=== PATIENT | female | born 1995 | race Hispanic/Latino ===

== ENCOUNTER 2018-10-24 17:58 | Emergency (ER) | payer OTHER ==
[2018-10-24] MEDS ORDERED: TETANUS & DIPHTHERIA TOX,ADULT 0.5 ML VIAL ONE (18:22)
[2018-10-24] MEDS ORDERED: KETOROLAC 30 MG/ML INJ ONE (18:22)
[2018-10-24] MEDS ORDERED: NA CHLORIDE 0.9% 1,000 ML ONE (18:22)
[2018-10-24] MEDS ORDERED: ONDANSETRON 4 MG/2 ML VIAL ONE (18:36)
[2018-10-24 19:21] LABS: Urine Blood 2+ (NEG); Urine Glucose NEGATIVE (NEG); Urine Protein NEGATIVE (NEG); Urine Specific Gravity 1.005 (1.005-1.030)
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
--- NOTE | 2018-10-24 19:58 | RAD REPORT ---
EXAM DESCRIPTION: RAD - Ankle Right 3 View - 10/24/2018 7:37 pm CLINICAL HISTORY: Right ankle pain FINDINGS: No fracture or dislocation is seen.
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
[2018-10-24] MEDS ORDERED: LIDOCAINE 1% MPF 30 ML VIAL ONE (20:14)
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
== END 2018-10-24 22:01 | disposition home or self-care (01) ==
LOC: ER 17:58
PROC: 0JQQ0ZZ Repair Right Foot Subcutaneous Tissue and Fascia, Open Approach (ICD-10-PCS; principal; 2018-10-24)
PROC: 0JQN0ZZ Repair Right Lower Leg Subcutaneous Tissue and Fascia, Open Approach (ICD-10-PCS; 2018-10-24)
DX: S81.021A Laceration with foreign body, right knee, initial encounter (principal); S91.114A Laceration without foreign body of right lesser toe(s) without damage to nail, initial encounter; S30.811A Abrasion of abdominal wall, initial encounter; S70.11XA Contusion of right thigh, initial encounter; S30.1XXA Contusion of abdominal wall, initial encounter; V49.50XA Passenger injured in collision with unspecified motor vehicles in traffic accident, initial encounter
CPT/HCPCS: 96361; 36415; 84703; 81003; 70450; 72125; 71260; 74177; 73552; 73610; 96374; 99284; 12004; Q9967; J7030; 90714; J2405

== ENCOUNTER 2022-12-18 20:09 | Emergency (ER) | payer OTHER, SELFPAY ==
--- OUTSIDE RECORDS SUMMARY | 2022-12-18 20:14 | XMS REPORT | Continuity of Care Document ---
:1995 Author Organization [facility] t Address [address] [place] [address] Care Team Providers Name Role Phone Terri Parish Primary Care Physician GILDA HOFFMANN Attending Clinician Unavailable Lab, Vick Attending Clinician Unavailable Maryana Bullock MD Attending Clinician MARYANA BULLOCK Attending Clinician Unavailable MARYANA BULLOCK Attending Clinician Unavailable 1, [facility] Room Attending Clinician Unavailable Gilda Pugh Attending Clinician [phone] LAST ALMARAZ Attending Clinician Unavailable 2, [facility] Room Attending Clinician Unavailable Last Almaraz MD Attending Clinician [phone] Lab, Rajat-Yasir Attending Clinician Unavailable Doctor Unassigned, [place] Attending Clinician Unavailable BEATRIS CASTREJON Attending Clinician Unavailable [id number] Attending Clinician Unavailable Quentin Galindo DO Attending Clinician Payers Payer Name Policy Type Policy Number Effective Date Expiration Date S ource MEDICAID OF [place] [id number] 2022 00:00:00 BCBS 2 [id number] 2022 00:00:00 Problems Condition Condition Condition Status Onset Resolution Last Treating Co mments Source Name Details Category Date Date Treatment Clinician Date Rh Rh Disease Active Overview: Univer s negative negative 11-09 [place] ity of state in state in 00:00: g of this Ciaran as antepartum antepartum 00 note Me dical period period might be Branch different from the original. Rhogam at 28 weeks Supervisio Supervisio Disease Active U nivers n of n of 8 ity of high-risk [place] 00:[place] [facility] Obesity in Obesity in Disease Active U nivers 8- ity of 00:00: [place] [address] Medical Branch Other Other Disease Active Univers general general 8- it[place] of counseling [place] and advice 00 Me dical for for Branch contracept contracept everardo everardo management management Obesity Obesity Disease Active Univers (BMI (BMI 8-21 ity of 30-39.9) 30-39.9) 00:00: [address] Breast Breast Disease Active Univers discharge discharge 2-12 ity of 00:00: [place] [address] Medical Branch Missed Missed Disease Active Univers menses menses 6- ity of 00:00: [place] [facility] Need for Need for Disease Active Unive rs HPV HPV 6-07 ity of vaccin[place] [facility] Allergies, Adverse Reactions, Alerts Allergy Allergy Status Severity Reaction(s) Onset Inactive Treating Comm ents Source Name Type Date Date Clinician NO KNOWN Drug Active Univers ALLERGIE Class ity of S [facility] Social History Social Habit Start Date Stop Date Quantity Comments Source ASSERTION 2022-10-03 University of 00:00:00 [facility] Gender identity Universit y of [facility] Sexual orientation Univer sity [facility] History of Social 2022-11-07 2022-11-07 Univers ity of function 00:00:00 00:00:00 [facility] Alcohol intake 2022-07-19 2022-07-19 Ex-drinker Yue alicia - 00:00:00 00:00:00 (finding) External Alcohol Comment 2022-07-18 2022-07-18 socially Yue Cordero ybold - 00:00:00 00:00:00 External Exposure to 2019-10-14 2019-11-13 [facility] 00:00:00 15:34:00 [facility] Tobacco use and 2016-08-15 2016-08-15 Smokeless Universit y of exposure 00:00:00 00:00:00 tobacco non-user [facility] Sex Assigned At [birth year] Yue Se ybold - 00:00:00 00:00:00 External Smoking Status Start Date Stop Date Source Never smoked tobacco [facility] Medications Ordered Filled Start Stop Current Ordering Indication Dosage Frequency Signature Comments Components Source Medication Medication Date Date Medication? Clinician (SIG) Name Name PNV 67-iron 2022-0 Yes [id number] 1{each} Take 1 Univers ps-folate 9-06 Each by ity of no.1-dha 00:00: mouth in [place] (VITAFOL the Medical ULTRA) 29 morning. Branch mg iron- 1 mg-200 mg Cap PNV 67-iron 2022-0 Yes [id number] 1{each} Take 1 Univers ps-folate 9-06 Each by ity of no.1-dha 00:00: mouth in [place] (VITAFOL the Medical ULTRA) 29 morning. Branch mg iron- 1 mg-200 mg Cap PNV 67-iron 2022-0 Yes [id number] 1{each} Take 1 Univers ps-folate 9-06 Each by ity of no.1-dha 00:00: mouth in [place] (VITAFOL the Medical ULTRA) 29 morning. Branch mg iron- 1 mg-200 mg Cap PNV 67-iron 2022-0 Yes [id number] 1{each} Take 1 Univers ps-folate 9-06 Each by ity of no.1-dha 00:00: mouth in [place] (VITAFOL 00 the Medical ULTRA) 29 morning. Branch mg iron- 1 mg-200 mg Cap PNV 67-iron 2022-0 Yes [id number] 1{each} Take 1 Univers ps-folate 9-06 Each by ity of no.1-dha 00:00: mouth in [place] (VITAFOL 00 the Medical ULTRA) 29 morning. Branch mg iron- 1 mg-200 mg Cap PNV 67-iron 3-0 Yes [id number] 1{each} Take 1 Univers ps-folate 9-06 Each by ity of no.1-dha 00:00: mouth in [place] (VITAFOL 00 the Medical ULTRA) 29 morning. Branch mg iron- 1 mg-200 mg Cap PNV 67-iron 3-0 Yes [id number] 1{each} Take 1 Univers ps-folate 9-06 Each by ity of no.1-dha 00:00: mouth in [place] (VITAFOL 00 the Medical ULTRA) 29 morning. Branch mg iron- 1 mg-200 mg Cap proMETHazin 2023-0 Yes [id number] 25mg Take 1 Univers e 25 mg 8-29 tablet by ity of tablet 00:00: mouth [place] 00 every 6 Medical (six) Branch hours as needed for Nausea and Vomiting (N/V). proMETHazin 3-0 Yes [id number] 25mg Take 1 Univers e 25 mg 8-29 tablet by ity of tablet 00:00: mouth [place] 00 every 6 Medical (six) Branch hours as needed for Nausea and Vomiting (N/V). proMETHazin 3-0 Yes [id number] 25mg Take 1 Univers e 25 mg 8-29 tablet by ity of tablet 00:00: mouth [place] 00 every 6 Medical (six) Branch hours as needed for Nausea and Vomiting (N/V). proMETHazin 2023-0 Yes [id number] 25mg Take 1 Univers e 25 mg 8-29 tablet by ity of tablet 00:00: mouth [place] 00 every 6 Medical (six) Branch hours as needed for Nausea and Vomiting (N/V). proMETHazin 2023-0 Yes [id number] 25mg Take 1 Univers e 25 mg 8-29 tablet by ity of tablet 00:00: mouth [place] 00 every 6 Medical (six) Branch hours as needed for Nausea and Vomiting (N/V). proMETHazin 2023-0 Yes [id number] 25mg Take 1 Univers e 25 mg 8-29 tablet by ity of tablet 00:00: mouth [place] 00 every 6 Medical (six) Branch hours as needed for Nausea and Vomiting (N/V). proMETHazin 2023-0 Yes [id number] 25mg Take 1 Univers e 25 mg 8-29 tablet by ity of tablet 00:00: mouth [place] 00 every 6 Medical (six) Branch hours as needed for Nausea and Vomiting (N/V). proMETHazin 3-0 Yes [id number] 25mg Take 1 Univers e 25 mg 8-29 tablet by ity of tablet 00:00: mouth [place] 00 every 6 Medical (six) Branch hours as needed for Nausea and Vomiting (N/V). proMETHazin 3-0 Yes [id number] 25mg Take 1 Univers e 25 mg 8-29 tablet by ity of tablet 00:00: mouth [place] 00 every 6 Medical (six) Branch hours as needed for Nausea and Vomiting (N/V). proMETHazin 3-0 Yes [id number] 25mg Take 1 Univers e 25 mg 8-29 tablet by ity of tablet 00:00: mouth [place] 00 every 6 Medical (six) Branch hours as needed for Nausea and Vomiting (N/V). proMETHazin 3-0 Yes [id number] 25mg Take 1 Univers e 25 mg 8-29 tablet by ity of tablet 00:00: mouth [place] 00 every 6 Medical (six) Branch hours as needed for Nausea and Vomiting (N/V). proMETHazin 3-0 Yes [id number] 25mg Take 1 Univers e 25 mg 8-29 tablet by ity of tablet 00:00: mouth [place] 00 every 6 Medical (six) Branch hours as needed for Nausea and Vomiting (N/V). proMETHazin 3-0 Yes [id number] 25mg Take 1 Univers e 25 mg 8-29 tablet by ity of tablet 00:00: mouth [place] 00 every 6 Medical (six) Branch hours as needed for Nausea and Vomiting (N/V). medroxyPROG 2020- No [id number] 150mg Univers ESTERone 11-12 ity of (DEPO-PROVE 21:15: 21:14 [place] ) 00 :00 Medical injection Branch 150 mg medroxyPROG 2019-2020- No [id number] 150mg 150 mg, Univers ESTERone 11-12 Intramuscu ity of (DEPO-PROVE 21:15: 21:14 lar, [facility]) 00 :00 [id number], Medical injection 4 doses, Branch 150 mg First dose on Nava 11/13/19 at 1615, Last dose on Nava 07/22/20 at 1615, Routine medroxyPROG 2020-0 2020- No [id number] 150mg Univers ESTERone 11-12 ity of (DEPO-PROVE 21:15: 21:14 [place] RA) 00 :00 Medical injection Branch 150 mg medroxyPROG 2020-0 2020- No [id number] 150mg Univers ESTERone 11-12 ity of (DEPO-PROVE 21:15: 21:14 [place] RA) 00 :00 Medical injection Branch 150 mg medroxyPROG 2020-0 2020- No [id number] 150mg 150 mg, Univers ESTERone 11-12 Intramuscu ity of (DEPO-PROVE 21:15: 21:14 lar, [place] RA) 00 :00 [id number], Medical injection 4 doses, Branch 150 mg First dose on Nava 11/13/19 at 1615, Last dose on Nava 07/22/20 at 1615, Routine No known No Univers medications ity [facility] No known No Univers medications ity [facility] No known No Univers medications ity [facility] Immunizations Ordered Immunization Filled Date Status Comments Sour ce Name Immunization Name HPV 9 (Human 2016-08-15 Completed Yue roberts Papillomavirus) 00:00:00 - Externa yvette HPV9 2016-08-15 Completed University of 00:00:00 [facility] HPV9 2016-08-15 Completed University of 00:00:00 [facility] HPV9 2016-08-15 Completed University of 00:00:00 [facility] HPV9 2016-08-15 Completed University of 00:00:00 [facility] HPV9 2016-08-15 Completed University of 00:00:00 [facility] HPV9 2016-08-15 Completed University of 00:00:00 [facility] HPV9 2016-08-15 Completed University of 00:00:00 [facility] HPV9 2016-08-15 Completed University of 00:00:00 [facility] HPV9 2016-08-15 Completed University of 00:00:00 [facility] HPV9 2016-08-15 Completed University of 00:00:00 [facility] HPV9 2016-08-15 Completed University of 00:00:00 [facility] HPV9 2016-08-15 Completed University of 00:00:00 [facility] HPV9 2016-08-15 Completed University of 00:00:00 [facility] HPV9 2016-08-15 Completed University of 00:00:00 [facility] HPV9 2016-08-15 Completed University of 00:00:00 [facility] HPV9 2016-08-15 Completed University of 00:00:00 [facility] HEPATITIS A- 2012-08-09 Completed Yeu roberts PEDI/ADOL 00:00:00 - External HPV 4 (Human 2012-08-09 Completed Yue roberts Papillomavirus) 00:00:00 - Externa l Meningococcal 2012-08-09 Completed Yue Byrd old Vaccine- 00:00:00 - External Conjugate(Menveo) HPV 2012-08-09 Completed University of 00:00:00 [facility] HPV 2012-08-09 Completed University of 00:00:00 [facility] HEPATITIS A 2012-08-09 Completed University of 00:00:00 [facility] HEPATITIS A 2012-08-09 Completed University of 00:00:00 [facility] Meningococcal 2012-08-09 Completed University of Oligosaccharide 00:00:00 [place] [facility] ical (groups A, C, Y and Branc h W-135) conjugate vaccine (MCV4O) Meningococcal 2012-08-09 Completed University of Oligosaccharide 00:00:00 [place] [facility] ical (groups A, C, Y and Branc h W-135) conjugate vaccine (MCV4O) HPV 2012-08-09 Completed University of 00:00:00 [facility] HEPATITIS A 2012-08-09 Completed University of 00:00:00 [facility] Meningococcal 2012-08-09 Completed University of Oligosaccharide 00:00:00 [place] [facility] ical (groups A, C, Y and Branc h W-135) conjugate vaccine (MCV4O) HPV 2012-08-09 Completed University of 00:00:00 [facility] HEPATITIS A 2012-08-09 Completed University of 00:00:00 [facility] Meningococcal 2012-08-09 Completed University of Oligosaccharide 00:00:00 [place] [facility] ical (groups A, C, Y and Branc h W-135) conjugate vaccine (MCV4O) HPV 2012-08-09 Completed University of 00:00:00 [facility] HEPATITIS A 2012-08-09 Completed University of 00:00:00 [facility] Meningococcal 2012-08-09 Completed University of Oligosaccharide 00:00:00 [place] Med ical (groups A, C, Y and Branc h W-135) conjugate vaccine (MCV4O) HPV 2012-08-09 Completed University of 00:00:00 [facility] HEPATITIS A 2012-08-09 Completed University of 00:00:00 [facility] Meningococcal 2012-08-09 Completed University of Oligosaccharide 00:00:00 [place] Med ical (groups A, C, Y and Branc h W-135) conjugate vaccine (MCV4O) HPV 2012-08-09 Completed University of 00:00:00 [facility] HEPATITIS A 2012-08-09 Completed University of 00:00:00 [facility] Meningococcal 2012-08-09 Completed University of Oligosaccharide 00:00:00 [place] Med ical (groups A, C, Y and Branc h W-135) conjugate vaccine (MCV4O) HPV 2012-08-09 Completed University of 00:00:00 [facility] HEPATITIS A 2012-08-09 Completed University of 00:00:00 [facility] Meningococcal 2012-08-09 Completed University of Oligosaccharide 00:00:00 [place] Med ical (groups A, C, Y and Branc h W-135) conjugate vaccine (MCV4O) HPV 2012-08-09 Completed University of 00:00:00 [facility] HEPATITIS A 2012-08-09 Completed University of 00:00:00 [facility] Meningococcal 2012-08-09 Completed University of Oligosaccharide 00:00:00 [place] Med ical (groups A, C, Y and Branc h W-135) conjugate vaccine (MCV4O) HPV 2012-08-09 Completed University of 00:00:00 [facility] HEPATITIS A 2012-08-09 Completed University of 00:00:00 [facility] Meningococcal 2012-08-09 Completed University of Oligosaccharide 00:00:00 [place] Med ical (groups A, C, Y and Branc h W-135) conjugate vaccine (MCV4O) HPV 2012-08-09 Completed University of 00:00:00 [facility] HPV 2012-08-09 Completed University of 00:00:00 [facility] HEPATITIS A 2012-08-09 Completed University of 00:00:00 [facility] Meningococcal 2012-08-09 Completed University of Oligosaccharide 00:00:00 [place] Med ical (groups A, C, Y and Branc h W-135) conjugate vaccine (MCV4O) HEPATITIS A 2012-08-09 Completed University of 00:00:00 [facility] Meningococcal 2012-08-09 Completed University of Oligosaccharide 00:00:00 [place] Med ical (groups A, C, Y and Branc h W-135) conjugate vaccine (MCV4O) HPV 2012-08-09 Completed University of 00:00:00 [facility] HEPATITIS A 2012-08-09 Completed University of 00:00:00 [facility] Meningococcal 2012-08-09 Completed University of Oligosaccharide 00:00:00 [place] Med ical (groups A, C, Y and Branc h W-135) conjugate vaccine (MCV4O) HPV 2012-08-09 Completed University of 00:00:00 [facility] HEPATITIS A 2012-08-09 Completed University of 00:00:00 [facility] Meningococcal 2012-08-09 Completed University of Oligosaccharide 00:00:00 [place] Med ical (groups A, C, Y and Branc h W-135) conjugate vaccine (MCV4O) HPV 2012-08-09 Completed University of 00:00:00 [facility] HEPATITIS A 2012-08-09 Completed University of 00:00:00 [facility] Meningococcal 2012-08-09 Completed University of Oligosaccharide 00:00:00 [place] Med ical (groups A, C, Y and Branc h W-135) conjugate vaccine (MCV4O) HPV 2012-08-09 Completed University of 00:00:00 [facility] HEPATITIS A 2012-08-09 Completed University of 00:00:00 [facility] Meningococcal 2012-08-09 Completed University of Oligosaccharide 00:00:00 [place] Med ical (groups A, C, Y and Branc h W-135) conjugate vaccine (MCV4O) Influenza Virus 2007-11-26 Completed Yue joel Vaccine, Unspecified 00:00:00 - Ex ternal Formulation Tdap- (Boostrix, 2007-11-26 Completed Yue porter Adacel) 00:00:00 - External Influenza Virus 2007-11-26 Completed Universit y of Vaccine 00:00:00 [facility] TDAP 2007-11-26 Completed University of 00:00:00 [facility] Influenza Virus 2007-11-26 Completed Universit y of Vaccine 00:00:00 [facility] TDAP 2007-11-26 Completed University of 00:00:00 [facility] Influenza Virus 2007-11-26 Completed Universit y of Vaccine 00:00:00 [facility] TDAP 2007-11-26 Completed University of 00:00:00 [facility] Influenza Virus 2007-11-26 Completed Universit y of Vaccine 00:00:00 [facility] TDAP 2007-11-26 Completed University of 00:00:00 [facility] Influenza Virus 2007-11-26 Completed Universit y of Vaccine 00:00:00 [facility] Influenza Virus 2007-11-26 Completed Universit y of Vaccine 00:00:00 [facility] TDAP 2007-11-26 Completed University of 00:00:00 [facility] Influenza Virus 2007-11-26 Completed Universit y of Vaccine 00:00:00 [facility] TDAP 2007-11-26 Completed University of 00:00:00 [facility] TDAP 2007-11-26 Completed University of 00:00:00 [facility] Influenza Virus 2007-11-26 Completed Universit y of Vaccine 00:00:00 [facility] TDAP 2007-11-26 Completed University of 00:00:00 [facility] Influenza Virus 2007-11-26 Completed Universit y of Vaccine 00:00:00 [facility] TDAP 2007-11-26 Completed University of 00:00:00 [facility] Influenza Virus 2007-11-26 Completed Universit y of Vaccine 00:00:00 [facility] TDAP 2007-11-26 Completed University of 00:00:00 [facility] Influenza Virus 2007-11-26 Completed Universit y of Vaccine 00:00:00 [facility] TDAP 2007-11-26 Completed University of 00:00:00 [facility] Influenza Virus 2007-11-26 Completed Universit y of Vaccine 00:00:00 [facility] TDAP 2007-11-26 Completed University of 00:00:00 [facility] Influenza Virus 2007-11-26 Completed Universit y of Vaccine 00:00:00 [facility] TDAP 2007-11-26 Completed University of 00:00:00 [facility] Influenza Virus 2007-11-26 Completed Universit y of Vaccine 00:00:00 [facility] TDAP 2007-11-26 Completed University of 00:00:00 [facility] Influenza Virus 2007-11-26 Completed Universit y of Vaccine 00:00:00 [facility] TDAP 2007-11-26 Completed University of 00:00:00 [facility] Influenza Virus 2007-11-26 Completed Universit y of Vaccine 00:00:00 [facility] TDAP 2007-11-26 Completed University of 00:00:00 [facility] HEPATITIS A- 2006-08-13 Completed Yue roberts PEDI/ADOL 00:00:00 - External HPV 4 (Human 2006-08-13 Completed Yue roberts Papillomavirus) 00:00:00 - Externa l HEPATITIS A 2006-08-13 Completed University of 00:00:00 [place] [facility] HPV 2006-08-13 Completed University of 00:00:00 [place] [facility] HEPATITIS A 2006-08-13 Completed University of 00:00:00 [place] [facility] HPV 2006-08-13 Completed University of 00:00:00 [place] [facility] HEPATITIS A 2006-08-13 Completed University of 00:00:00 [place] [facility] HPV 2006-08-13 Completed University of 00:00:00 [place] [facility] HEPATITIS A 2006-08-13 Completed University of 00:00:00 [place] [facility] HEPATITIS A 2006-08-13 Completed University of 00:00:00 [place] [facility] HPV 2006-08-13 Completed University of 00:00:00 [place] [facility] HPV 2006-08-13 Completed University of 00:00:00 [place] [facility] HEPATITIS A 2006-08-13 Completed University of 00:00:00 [place] [facility] HPV 2006-08-13 Completed University of 00:00:00 [place] [facility] HEPATITIS A 2006-08-13 Completed University of 00:00:00 [place] [facility] HPV 2006-08-13 Completed University of 00:00:00 [place] [facility] HEPATITIS A 2006-08-13 Completed University of 00:00:00 [place] [facility] HPV 2006-08-13 Completed University of 00:00:00 [place] [facility] HEPATITIS A 2006-08-13 Completed University of 00:00:00 [place] [facility] HPV 2006-08-13 Completed University of 00:00:00 [place] [facility] HEPATITIS A 2006-08-13 Completed University of 00:00:00 [place] [facility] HPV 2006-08-13 Completed University of 00:00:00 [place] [facility] HEPATITIS A 2006-08-13 Completed University of 00:00:00 [place] [facility] HPV 2006-08-13 Completed University of 00:00:00 [place] [facility] HEPATITIS A 2006-08-13 Completed University of 00:00:00 [place] [facility] HPV 2006-08-13 Completed University of 00:00:00 [place] [facility] HEPATITIS A 2006-08-13 Completed University of 00:00:00 [place] [facility] HPV 2006-08-13 Completed University of 00:00:00 [place] [facility] HEPATITIS A 2006-08-13 Completed University of 00:00:00 [place] [facility] HPV 2006-08-13 Completed University of 00:00:00 [place] [facility] HEPATITIS A 2006-08-13 Completed University of 00:00:00 [place] [facility] HPV 2006-08-13 Completed University of 00:00:00 [facility] HEPATITIS A 2006-08-13 Completed University of 00:00:00 [place] [facility] HPV 2006-08-13 Completed University of 00:00:00 [facility] DTaP 1999-08-22 Completed Yue De Anda 00:00:00 - External MMR- Measles, Mumps, 1999-08-22 Completed Lexus De Anda Rubella 00:00:00 - External Polio Vaccine 1999-08-22 Completed Yue ruby 00:00:00 - External MMR 1999-08-22 Completed University of 00:00:00 [facility] Polio (IPV/OPV) 1999-08-22 Completed Universit y of 00:00:00 [facility] DTAP 1999-08-22 Completed University of 00:00:00 [facility] MMR 1999-08-22 Completed University of 00:00:00 [facility] Polio (IPV/OPV) 1999-08-22 Completed Universit y of 00:00:00 [facility] DTAP 1999-08-22 Completed University of 00:00:00 [facility] DTAP 1999-08-22 Completed University of 00:00:00 [facility] MMR 1999-08-22 Completed University of 00:00:00 [facility] Polio (IPV/OPV) 1999-08-22 Completed Universit y of 00:00:00 [facility] DTAP 1999-08-22 Completed University of 00:00:00 [facility] MMR 1999-08-22 Completed University of 00:00:00 [facility] Polio (IPV/OPV) 1999-08-22 Completed Universit y of 00:00:00 [facility] DTAP 1999-08-22 Completed University of 00:00:00 [facility] MMR 1999-08-22 Completed University of 00:00:00 [place] [facility] MMR 1999-08-22 Completed University of 00:00:00 [place] [facility] Polio (IPV/OPV) 1999-08-22 Completed Universit y of 00:00:00 [place] [facility] Polio (IPV/OPV) 1999-08-22 Completed Universit y of 00:00:00 [facility] DTAP 1999-08-22 Completed University of 00:00:00 [place] [facility] MMR 1999-08-22 Completed University of 00:00:00 [place] [facility] Polio (IPV/OPV) 1999-08-22 Completed Universit y of 00:00:00 [facility] DTAP 1999-08-22 Completed University of 00:00:00 [facility] MMR 1999-08-22 Completed University of 00:00:00 [place] [facility] Polio (IPV/OPV) 1999-08-22 Completed Universit y of 00:00:00 [facility] DTAP 1999-08-22 Completed University of 00:00:00 [facility] MMR 1999-08-22 Completed University of 00:00:00 [place] [facility] Polio (IPV/OPV) 1999-08-22 Completed Universit y of 00:00:00 [facility] DTAP 1999-08-22 Completed University of 00:00:00 [place] [facility] MMR 1999-08-22 Completed University of 00:00:00 [place] [facility] Polio (IPV/OPV) 1999-08-22 Completed Universit y of 00:00:00 [facility] DTAP 1999-08-22 Completed University of 00:00:00 [facility] MMR 1999-08-22 Completed University of 00:00:00 [place] [facility] Polio (IPV/OPV) 1999-08-22 Completed [facility] 00:00:00 [facility] DTAP 1999-08-22 Completed [facility] 00:00:00 [facility] MMR 1999-08-22 Completed [facility] 00:00:00 [facility] Polio (IPV/OPV) 1999-08-22 Completed [facility] 00:00:00 [facility] DTAP 1999-08-22 Completed [facility] 00:00:00 [facility] DTAP 1999-08-22 Completed [facility] 00:00:00 [facility] MMR 1999-08-22 Completed [facility] 00:00:00 [facility] Polio (IPV/OPV) 1999-08-22 Completed [facility] 00:00:00 [facility] DTAP 1999-08-22 Completed [facility] 00:00:00 [facility] MMR 1999-08-22 Completed [facility] 00:00:00 [facility] Polio (IPV/OPV) 1999-08-22 Completed [facility] 00:00:00 [facility] MMR 1999-08-22 Completed [facility] 00:00:00 [facility] Polio (IPV/OPV) 1999-08-22 Completed [facility] 00:00:00 [facility] DTAP 1999-08-22 Completed [facility] 00:00:00 [facility] MMR 1999-08-22 Completed [facility] 00:00:00 [facility] Polio (IPV/OPV) 1999-08-22 Completed [facility] 00:00:00 [facility] DTAP 1999-08-22 Completed [facility] 00:00:00 [facility] DTP- 1995 Completed Yue De [facility]a Diphtheria,Tetanus,Pe 00:00:00 - E xternal rtussis Tetanus Toxoid/HIB 1995 Completed [facility] 00:00:00 - External Polio Vaccine 1995 Completed Yue ruby 00:00:00 - External DTP 1995 Completed [facility] 00:00:00 [facility] HIB 4 Dose Schedule 1995 Completed Unive rsity of 00:00:00 [facility] Polio (IPV/OPV) 1995 Completed [facility] 00:00:00 [facility] DTP 1995 Completed [facility] 00:00:00 [facility] HIB 4 Dose Schedule 1995 Completed [facility]ive rsity of 00:00:00 [facility] Polio (IPV/OPV) 1995 Completed [facility] 00:00:00 [facility] DTP 1995 Completed [facility] 00:00:00 [facility] HIB 4 Dose Schedule 1995 Completed Unive rsity of 00:00:00 [facility] Polio (IPV/OPV) 1995 Completed [facility] 00:00:00 [facility] DTP 1995 Completed [facility] 00:00:00 [facility] HIB 4 Dose Schedule 1995 Completed Unive rsity of 00:00:00 [facility] DTP 1995 Completed [facility] 00:00:00 [facility] HIB 4 Dose Schedule 1995 Completed Unive rsity of 00:00:00 [facility] Polio (IPV/OPV) 1995 Completed [facility] 00:00:00 [facility] DTP 1995 Completed [facility] 00:00:00 [facility] HIB 4 Dose Schedule 1995 Completed [facility]ive rsity of 00:00:00 [facility] Polio (IPV/OPV) 1995 Completed [facility] 00:00:00 [facility] Polio (IPV/OPV) 1995 Completed [facility] 00:00:00 [facility] DTP 1995 Completed [facility] 00:00:00 [facility] HIB 4 Dose Schedule 1995 Completed Unive rsity of 00:00:00 [facility] Polio (IPV/OPV) 1995 Completed [facility] 00:00:00 [facility] DTP 1995 Completed [facility] 00:00:00 [facility] HIB 4 Dose Schedule 1995 Completed [facility]ive rsity of 00:00:00 [facility] Polio (IPV/OPV) 1995 Completed [facility] 00:00:00 [facility] DTP 1995 Completed [facility] 00:00:00 [facility] HIB 4 Dose Schedule 1995 Completed Unive rsity of 00:00:00 [facility] Polio (IPV/OPV) 1995 Completed [facility] 00:00:00 [facility] DTP 1995 Completed [facility] 00:00:00 [facility] HIB 4 Dose Schedule 1995 Completed Unive rsity of 00:00:00 [facility] Polio (IPV/OPV) 1995 Completed [facility] 00:00:00 [facility] DTP 1995 Completed [facility] 00:00:00 [facility] HIB 4 Dose Schedule 1995 Completed Unive rsity of 00:00:00 [facility] Polio (IPV/OPV) 1995 Completed [facility] 00:00:00 [facility] DTP 1995 Completed [facility] 00:00:00 [facility] HIB 4 Dose Schedule 1995 Completed Unive rsity of 00:00:00 [facility] Polio (IPV/OPV) 1995 Completed [facility] 00:00:00 [facility] DTP 1995 Completed [facility] 00:00:00 [facility] HIB 4 Dose Schedule 1995 Completed Unive rsity of 00:00:00 [facility] Polio (IPV/OPV) 1995 Completed [facility] 00:00:00 [facility] DTP 1995 Completed [facility] 00:00:00 [facility] DTP 1995 Completed [facility] 00:00:00 [facility] HIB 4 Dose Schedule 1995 Completed Unive rsity of 00:00:00 [facility] Polio (IPV/OPV) 1995 Completed [facility] 00:00:00 [facility] HIB 4 Dose Schedule 1995 Completed Unive rsity of 00:00:00 [facility] Polio (IPV/OPV) 1995 Completed [facility] 00:00:00 [facility] DTP 1995 Completed [facility] 00:00:00 [facility] HIB 4 Dose Schedule 1995 Completed Unive rsity of 00:00:00 [facility] Polio (IPV/OPV) 1995 Completed [facility] 00:00:00 [facility] DTP- 1995 Completed [facility] Diphtheria,Tetanus,Pe 00:00:00 - E xternal rtussis Hepatitis B, 1995 Completed [facility] 00:00:00 - External Pediatric Tetanus Toxoid/HIB 1995 Completed [facility] De [facility]a 00:00:00 - External Polio Vaccine 1995 Completed Yue ruby 00:00:00 - External DTP 1995 Completed [facility] 00:00:00 [facility] HIB 4 Dose Schedule 1995 Completed [facility]ive rsity of 00:00:00 [facility] Hep B, Adol or Pedi 1995 Completed Unive rsity of Dosage 00:00:00 [facility] Polio (IPV/OPV) 1995 Completed [facility] 00:00:00 [facility] DTP 1995 Completed [facility] 00:00:00 [facility] HIB 4 Dose Schedule 1995 Completed Unive rsity of 00:00:00 [facility] Hep B, Adol or Pedi 1995 Completed Unive rsity of Dosage 00:00:00 [facility] Polio (IPV/OPV) 1995 Completed [facility] 00:00:00 [facility] DTP 1995 Completed [facility] 00:00:00 [facility] HIB 4 Dose Schedule 1995 Completed Unive rsity of 00:00:00 [facility] DTP 1995 Completed [facility] 00:00:00 [facility] Hep B, Adol or Pedi 1995 Completed Unive rsity of Dosage 00:00:00 [facility] Polio (IPV/OPV) 1995 Completed [facility] 00:00:00 [facility] HIB 4 Dose Schedule 1995 Completed Unive rsity of 00:00:00 [facility] DTP 1995 Completed [facility] 00:00:00 [facility] HIB 4 Dose Schedule 1995 Completed [facility]ive rsity of 00:00:00 [facility] Hep B, Adol or Pedi 1995 Completed Unive rsity of Dosage 00:00:00 [facility] Polio (IPV/OPV) 1995 Completed [facility] 00:00:00 [facility] Hep B, Adol or Pedi 1995 Completed Unive rsity of Dosage 00:00:00 [facility] DTP 1995 Completed [facility] 00:00:00 [facility] HIB 4 Dose Schedule 1995 Completed Unive rsity of 00:00:00 [facility] Hep B, Adol or Pedi 1995 Completed Unive rsity of Dosage 00:00:00 [facility] Polio (IPV/OPV) 1995 Completed [facility] 00:00:00 [facility] Polio (IPV/OPV) 1995 Completed [facility] 00:00:00 [facility] DTP 1995 Completed [facility] 00:00:00 [facility] HIB 4 Dose Schedule 1995 Completed Unive rsity of 00:00:00 [facility] Hep B, Adol or Pedi 1995 Completed Unive rsity of Dosage 00:00:00 [facility] Polio (IPV/OPV) 1995 Completed [facility] 00:00:00 [facility] DTP 1995 Completed [facility] 00:00:00 [facility] HIB 4 Dose Schedule 1995 Completed Unive rsity of 00:00:00 [facility] Hep B, Adol or Pedi 1995 Completed Unive rsity of Dosage 00:00:00 [facility] Polio (IPV/OPV) 1995 Completed [facility] 00:00:00 [facility] DTP 1995 Completed [facility] 00:00:00 [facility] HIB 4 Dose Schedule 1995 Completed Unive rsity of 00:00:00 [facility] Hep B, Adol or Pedi 1995 Completed Unive rsity of Dosage 00:00:00 [facility] Polio (IPV/OPV) 1995 Completed [facility] 00:00:00 [facility] DTP 1995 Completed [facility] 00:00:00 [facility] HIB 4 Dose Schedule 1995 Completed Unive rsity of 00:00:00 [facility] Hep B, Adol or Pedi 1995 Completed Unive rsity of Dosage 00:00:00 [facility] Polio (IPV/OPV) 1995 Completed [facility] 00:00:00 [facility] DTP 1995 Completed [facility] 00:00:00 [facility] HIB 4 Dose Schedule 1995 Completed Unive rsity of 00:00:00 [facility] Hep B, Adol or Pedi 1995 Completed Unive rsity of Dosage 00:00:00 [facility] Polio (IPV/OPV) 1995 Completed [facility] 00:00:00 [facility] DTP 1995 Completed [facility] 00:00:00 [facility] HIB 4 Dose Schedule 1995 Completed Unive rsity of 00:00:00 [facility] Hep B, Adol or Pedi 1995 Completed Unive rsity of Dosage 00:00:00 [facility] Polio (IPV/OPV) 1995 Completed [facility] 00:00:00 [facility] DTP 1995 Completed [facility] 00:00:00 [facility] HIB 4 Dose Schedule 1995 Completed Unive rsity of 00:00:00 [facility] Hep B, Adol or Pedi 1995 Completed Unive rsity of Dosage 00:00:00 [facility] DTP 1995 Completed [facility] 00:00:00 [facility] Polio (IPV/OPV) 1995 Completed [facility] 00:00:00 [facility] DTP 1995 Completed [facility] 00:00:00 [facility] HIB 4 Dose Schedule 1995 Completed Unive rsity of 00:00:00 [facility] Hep B, Adol or Pedi 1995 Completed Unive rsity of Dosage 00:00:00 [facility] HIB 4 Dose Schedule 1995 Completed Unive rsity of 00:00:00 [facility] Polio (IPV/OPV) 1995 Completed [facility] 00:00:00 [facility] Hep B, Adol or Pedi 1995 Completed Unive rsity of Dosage 00:00:00 [facility] Polio (IPV/OPV) 1995 Completed [facility] 00:00:00 [facility] DTP 1995 Completed [facility] 00:00:00 [facility] HIB 4 Dose Schedule 1995 Completed Unive rsity of 00:00:00 [facility] Hep B, Adol or Pedi 1995 Completed Unive rsity of Dosage 00:00:00 [facility] Polio (IPV/OPV) 1995 Completed [facility] 00:00:00 [facility] Hepatitis B, 1995 Completed [facility] Seybo [facility] 00:00:00 - External Pediatric Hep B, Adol or Pedi 1995 Completed Unive rsity of Dosage 00:00:00 [facility] Hep B, Adol or Pedi 1995 Completed Unive rsity of Dosage 00:00:00 [facility] Hep B, Adol or Pedi 1995 Completed Unive rsity of Dosage 00:00:00 [facility] Hep B, Adol or Pedi 1995 Completed Unive rsity of Dosage 00:00:00 [facility] Hep B, Adol or Pedi 1995 Completed Unive rsity of Dosage 00:00:00 [facility] Hep B, Adol or Pedi 1995 Completed Unive rsity of Dosage 00:00:00 [facility] Hep B, Adol or Pedi 1995 Completed Unive rsity of Dosage 00:00:00 [facility] Hep B, Adol or Pedi 1995 Completed Unive rsity of Dosage 00:00:00 [facility] Hep B, Adol or Pedi 1995 Completed Unive rsity of Dosage 00:00:00 [facility] Hep B, Adol or Pedi 1995 Completed Unive rsity of Dosage 00:00:00 [facility] Hep B, Adol or Pedi 1995 Completed Unive rsity of Dosage 00:00:00 [facility] Hep B, Adol or Pedi 1995 Completed Unive rsity of Dosage 00:00:00 [facility] Hep B, Adol or Pedi 1995 Completed Unive rsity of Dosage 00:00:00 [facility] Hep B, Adol or Pedi 1995 Completed Unive rsity of Dosage 00:00:00 [facility] Hep B, Adol or Pedi 1995 Completed Unive rsity of Dosage 00:00:00 [facility] Hep B, Adol or Pedi 1995 Completed Unive rsity of Dosage 00:00:00 [facility] HPV Unknown Completed [facility] HEPATITIS A Unknown Completed [facility] Meningococcal Unknown Com[facility] ical (groups A, C, Y and Branc h W-135) conjugate vaccine (MCV4O) DTAP Unknown Completed [facility] DTP Unknown Completed [facility] DTP Unknown Completed [facility] HIB 4 Dose Schedule Unknown [facility] D[facility] Completed [facility] HEPATITIS A Unknown Completed [facility] Hep B, Adol or Pedi Unknown Completed [facility]ive [facility]ity [facility] Hep B, Adol or Pedi Unknown Completed Unive rsity [facility] HPV Unknown Completed [facility] Influenza Virus Unknown Completed [facility] Vaccine [facility] MMR Unknown Completed [facility] Polio (IPV/OPV) Unknown Completed [facility] Polio (IPV/OPV) Unknown Completed [facility] Polio (IPV/OPV) Unknown Completed [facility] TDAP Unknown Completed [facility] HPV9 Unknown Completed [facility] HPV Unknown Completed [facility] HEPATITIS A Unknown Completed [facility] Meningococcal Unknown Completed [facility] ical (groups A, C, Y and Branc h W-135) conjugate vaccine (MCV4O) DTAP Unknown Completed [facility] DTP Unknown Completed [facility] DTP Unknown Completed [facility] HIB 4 Dose Schedule Unknown Completed Unive [facility] HIB 4 Dose Schedule Unknown Completed Unive [facility] HEPATITIS A Unknown Completed [facility] Hep B, Adol or Pedi Unknown Completed Unive [facility]ity of [facility] Hep B, Adol or Pedi Unknown Completed Unive rsity [facility] HPV Unknown Completed [facility] Influenza Virus Unknown Completed [facility] MMR Unknown Completed [facility] Polio (IPV/OPV) Unknown Completed [facility] Polio (IPV/OPV) Unknown Completed [facility] Polio (IPV/OPV) Unknown Completed [facility] TDAP Unknown Completed [facility] HPV9 Unknown Completed [facility] HPV Unknown Completed [facility] HEPATITIS A Unknown Completed [facility] Meningococcal Unknown Completed [facility] ical (groups A, C, Y and Branc h W-135) conjugate vaccine (MCV4O) DTAP Unknown Completed [facility] DTP Unknown Completed [facility] DTP Unknown Completed [facility] HIB 4 Dose Schedule Unknown [facility] D[facility] Unknown Completed [facility] HEPATITIS A Unknown Completed [facility] Hep B, Adol or Pedi Unknown Completed [facility]ive [facility] Hep B, Adol or Pedi Unknown Completed Unive rsity [facility] HPV Unknown Completed [facility] Influenza Virus Unknown Completed [facility] MMR Unknown Completed [facility] Polio (IPV/OPV) Unknown Completed [facility] Polio (IPV/OPV) Unknown Completed [facility] Polio (IPV/OPV) Unknown Completed [facility] TDAP Unknown Completed [facility] HPV9 Unknown Completed [facility] HPV Unknown Completed [facility] HEPATITIS A Unknown Completed [facility] Meningococcal Unknown Completed [facility] ical (groups A, C, Y and Branc h W-135) conjugate vaccine (MCV4O) DTAP Unknown Completed [facility] DTP Unknown Completed [facility] DTP Unknown Completed [facility] HIB 4 Dose Schedule Unknown Completed Unive [facility] HIB 4 Dose Schedule Unknown Completed Unive [facility] HEPATITIS A Unknown Completed [facility] Hep B, Adol or Pedi Unknown Completed Unive rsity [facility] Hep B, Adol or Pedi Unknown Completed Unive rsity [facility] HPV Unknown Completed [facility] Influenza Virus Unknown Completed [facility] MMR Unknown Completed [facility] Polio (IPV/OPV) Unknown Completed [facility] Polio (IPV/OPV) Unknown Completed [facility] Polio (IPV/OPV) Unknown Completed [facility] TDAP Unknown Completed [facility] HPV9 Unknown Completed [facility] HPV Unknown Completed [facility] HEPATITIS A Unknown Completed [facility] Meningococcal Unknown Completed [facility] Med ical (groups A, C, Y and Branc h W-135) conjugate vaccine (MCV4O) DTAP Unknown Completed [facility] DTP Unknown Completed [facility] DTP Unknown Completed [facility] HIB 4 Dose Schedule Unknown Completed Unive [facility] HIB 4 Dose Schedule Unknown Completed Unive [facility] HEPATITIS A Unknown Completed [facility] Hep B, Adol or Pedi Unknown Completed [facility]ive [facility]ity [facility] Hep B, Adol or Pedi Unknown Completed Unive rsity [facility] HPV Unknown Completed [facility] Influenza Virus Unknown Completed [facility] MMR Unknown Completed [facility] Polio (IPV/OPV) Unknown Completed [facility] Polio (IPV/OPV) Unknown Completed [facility] Polio (IPV/OPV) Unknown Completed [facility] TDAP Unknown Completed [facility] HPV9 Unknown Completed [facility] HPV Unknown Completed [facility] HEPATITIS A Unknown Completed [facility] Meningococcal Unknown Completed [facility] ical (groups A, C, Y and Branc h W-135) conjugate vaccine (MCV4O) DTAP Unknown Completed [facility] DTP Unknown Completed [facility] DTP Unknown Completed [facility] HIB 4 Dose Schedule Unknown Completed Unive [facility] HIB 4 Dose Schedule Unknown Completed Unive [facility] HEPATITIS A Unknown Completed [facility] Hep B, Adol or Pedi Unknown Completed Unive rsity [facility] Hep B, Adol or Pedi Unknown Completed Unive rsity [facility] HPV Unknown Completed [facility] Influenza Virus Unknown Completed [facility] MMR Unknown Completed [facility] Polio (IPV/OPV) Unknown Completed [facility] Polio (IPV/OPV) Unknown Completed [facility] Polio (IPV/OPV) Unknown Completed [facility] TDAP Unknown Completed [facility] HPV9 Unknown Completed [facility] Vital Signs Vital Name Observation Time Observation Value Comments Source Systolic blood 2022-12-05 14:45:00 117 mm[Hg] Univer sity of pressure [facility] Diastolic blood 2022-12-05 14:45:00 74 mm[Hg] Unive rsity of pressure [facility] Heart rate 2022-12-05 14:45:00 65 /min [facility] Body temperature 2022-12-05 14:45:00 36.33 Deanne Univ ers[facility] Respiratory rate 2022-12-05 14:45:00 18 /min [facility] Body height 2022-12-05 14:45:00 160 cm [facility] Body weight 2022-12-05 14:45:00 104.962 kg [facility] BMI 2022-12-05 14:45:00 40.99 kg/m2 [facility] Systolic blood 2022-11-07 15:37:00 120 mm[Hg] Univer sity of pressure [facility] Diastolic blood 2022-11-07 15:37:00 60 mm[Hg] Unive rsity of [facility] [place] Heart rate 2022-11-07 15:37:00 63 /min [facility] Body temperature 2022-11-07 15:37:00 36.61 Deanne [facility] Respiratory rate 2022-11-07 15:37:00 18 /min [facility] Body height 2022-11-07 15:37:00 160 cm [facility] Body weight 2022-11-07 15:37:00 102.377 kg [facility] BMI 2022-11-07 15:37:00 39.98 kg/m2 [facility] Heart rate 2022-07-19 14:55:00 63 /min Yue Nieves eybold - External Body temperature 2022-07-19 14:55:00 36.83 Deanne Lexus ey Seybold - External Respiratory rate 2022-07-19 14:55:00 18 /min Lexus ey Seybold - External Body height 2022-07-19 14:55:00 157.5 cm Yue S eybold - External Body weight 2022-07-19 14:55:00 98.612 kg Yue S eybold - External BMI 2022-07-19 14:55:00 39.76 kg/m2 Yue S eybold - External Oxygen saturation in 2022-07-19 14:55:00 99 /min Yue De Anda - Arterial blood by External Pulse oximetry Systolic blood 2022-07-19 14:55:00 118 mm[Hg] Yue De Anda - pressure External Diastolic blood 2022-07-19 14:55:00 66 mm[Hg] Melinda De Anda - pressure External Systolic blood 2019-11-13 20:39:00 106 mm[Hg] Univer sity of pressure [facility] Diastolic blood 2019-11-13 20:39:00 64 mm[Hg] Unive rsity of pressure [facility] Heart rate 2019-11-13 20:39:00 58 /min Universi ty of [facility] Body temperature 2019-11-13 20:39:[address] [facility] Respiratory rate 2019-11-13 20:39:00 16 /min [facility] Body height 2019-11-13 20:39:00 160 cm [facility] Body weight 2019-11-13 20:39:00 99.394 kg [facility] BMI 2019-11-13 20:39:00 38.82 kg/m2 [facility] Systolic blood 2019-10-31 13:33:00 107 mm[Hg] Univer sity of pressure [facility] Diastolic blood 2019-10-31 13:33:00 70 mm[Hg] Unive rsity of pressure [facility] Heart rate 2019-10-31 13:33:00 59 /min Universi ty of [facility] Body temperature 2019-10-31 13:33:00 36.28 Deanne Univ [facility] Respiratory rate 2019-10-31 13:33:00 16 /min [facility] height 2019-10-31 13:33:00 160 cm [facility] Body weight 2019-10-31 13:33:00 99.701 kg [facility] BMI 2019-10-31 13:33:00 38.94 kg/m2 [facility]i [facility] Procedures Procedure Date / Time Performed Performing Clinician Sourc e FIRST TRIMESTER 2022-12-14 14:08:00 Gilda Hoffmann [facility] ULTRASOUND [facility] POCT URINALYSIS 2022-12-05 14:46:00 Gilda Hoffmann Univers ity [facility] VZV ANTIBODY SCREEN 2022-12-05 14:39:00 Gilda Hoffmann Uni versity of [facility] SECOND AND THIRD 2022-11-21 15:08:00 [facility] GLUCOSE 1 HOUR POST 2022-11-14 14:47:00 Gilda Hoffmann [facility] versity [facility] POCT TEST 2022-11-07 15:32:00 Gilda Hoffmann Uni versrubia [facility] POCT URINALYSIS W/O 2022-11-07 15:31:00 Gilda Hoffmann Uni versity of [place] SPECIFIC GRAVITY [facility] CONSENT/REFUSAL FOR 2022-11-07 14:27:32 Doctor Unassigned, No [facility] DIAGNOSIS AND [facility] TREATMENT POCT TEST 2019-11-13 20:54:00 Gilda Hoffmann Uni versity of [facility] ASSIGNMENT OF BENEFITS 2019-10-31 13:02:36 Doctor Unassigned, No [facility] Name [facility] POCT TEST 2019-10-31 00:00:00 Gilda Hoffmann Uni versity [facility] Encounters Start End Encounter Admission Attending Care Care Encounter Source Date/Time Date/Time Type Type Clinicians Facility Department ID 2023-01-02 2023-01-02 Outpatient R TAHIRA [facility] [id number] Univers 09:45:00 09:45:00 GILDA barkley o f [facility] 2022-12-14 2022-12-14 Secretary Of Police Lab, [facility] 1.2.840. [id number] Univers 10:00:00 10:00:00 Visit Maryana Bullock [employer] [id number] [facility] [id number] Ciaran as MATERNAL [phone] [facility] ical & CHILD [address] [place] [address] 2022-12-14 2022-12-14 Outpatient P MARYANA BULLOCK [facility] [id number] Univers 09:00:00 09:56:26 MARYANA BULLOCK ity [facility] 2022-12-14 2022-12-14 Secretary Of Police [facility] Room [facility] 1.2. [id number] Univers 09:00:00 09:56:26 Visit Maryana Bullock [employer]SEM[employer] [id number] ity of REGIONAL [id number] Ciaran as MATERNAL [phone] [facility] ical & CHILD [address] [place] [address] 2022-12-14 2022-12-14 Abstract [facility] 1.2.840.114 [id number] Univers 00:00:00 00:00:00 Gilda C [employer]SEM[employer] [id number] ity of REGIONAL [id number] Ciaran as MATERNAL [id number] [facility] & [address] 2022-12-05 2022-12-05 [facility] [id number] Univers 09:45:00 10:37:48 GILDA ity o f [facility] 2022-12-05 2022-12-05 Routine [facility] [id number] Univers 09:45:00 10:37:48 Gilda C [employer] [id number] ity of Visit REGIONAL [id number] Ciaran as MATERNAL [id number] [facility] & [address] 2022-11-23 2022-11-23 Abstract [facility] [id number] Univers 00:00:00 00:00:00 Gilda C [employer]INE [employer]SEM[employer]ER [id number] ity of REGIONAL [id number] Ciaran as MATERNAL [phone] [facility] & CHILD [address] [place] [address] 2022-11-21 2022-11-21 Outpatient P SUNG [facility] [id number] Univers 08:30:00 09:15:55 CHASEY ity [facility] 2022-11-21 2022-11-21 Secretary Of Police 2, [facility]sg Room UNIVERSIT 1 .2.840.114 [id number] Univers 08:30:00 09:15:55 Visit Last Almaraz DARBY 350.1 .13.10 ity of CL[id number] [phone] [address] 2022-11-14 2022-11-14 Secretary Of Police Lab, [facility] 1.2.840. 114 [id number] Univers 08:30:00 08:48:45 Visit Gilda Hoffmann [employer] 350.1.13. 10 ity of REGIONAL [id number] Ciaran as MATERNAL [id number] Med ical & CHILD [address] [place] [address] 2022-11-14 2022-11-14 Outpatient R TAHIRA [facility] [id number] Univers 08:30:00 08:48:45 GILDA campbelly o f [facility] 2022-11-14 2022-11-14 Patient [facility] [id number] Univers 00:00:00 00:00:00 Secure Msg Gilda C [employer] 350.1.13.10 ity of REGIONAL 4.2.7.2.686 Ciaran as MATERNAL [id number] [facility] ical & CHILD [address] [place] [address] 2022-11-14 2022-11-14 Telephone [facility] 1.2.840.114 [id number] Univers 00:00:00 00:00:00 Gidla C [employer]SEM[employer]ER 350.1.13.10 ity of REGIONAL [id number] Ciaran as MATERNAL [id number] [facility] ical & CHILD [address] [place] [address] 2022-11-09 2022-11-09 Telephone [facility] 1.2.840.114 [id number] Univers 00:00:00 00:00:00 Gilda C [employer]INE ASSEMBLER 350.1.13.10 ity of REGIONAL [id number] Ciaran as MATERNAL [id number] [facility] ical & CHILD [address] [place] [address] 2022-11-07 2022-11-07 Outpatient R TAHIRA, [facility] [id number] Univers 10:00:00 11:45:08 GILDA ity o f [facility] 2022-11-07 2022-11-07 Initial Tahira [facility] [id number] Univers 10:00:00 11:45:08 Gilda Angela [employer]SEM[employer]ER 350.1.13.10 ity of Visit [facility] [id number] Ciaran as MATERNAL [id number] Med ical & CHILD 107 [facility] 2022-11-07 2022-11-07 Orders Doctor CATHERINE 1.2.840.114 [id number] Univers 00:00:00 00:00:00 Only Unassigned, WINTER 350.1.13.10 ity of [place] [facility] 4.2.7.2.686 Ciaran as [id number] [address] 2022-07-21 2022-07-21 Outpatient YUE CASTREJON [id number] Yue 00:00:00 00:00:00 FIRAS Seybol d 2022-07-19 2022-07-19 Outpatient LAB53 YUE HARRISON [id number] Yue 10:45:00 10:45:00 Seybol d 2022-07-19 2022-07-19 Outpatient YUE CASTREJON [id number] Yue 10:00:00 10:00:00 FIRAS Seybol d 2022-07-19 2022-07-19 Outpatient YUE CASTREJON [id number] Yue 10:00:00 10:00:00 FIRAS Seybol d 2020-06-01 2020-06-01 Patient Mateo [facility] 1.2.840.114 [id number] Univers 00:00:00 00:00:00 Outreach Quentin PRIMARY 350.1.13.10 i ty of [facility] [place] [id number] [address] 2020-02-09 2020-02-09 Outpatient R [facility] [id number] Univers 14:00:00 14:00:00 ity of [facility] 2019-11-20 2019-11-20 Patient Doctor [facility] 1.2.840.114 [id number] Univers 00:00:00 00:00:00 Secure Msg Unassigned, [employer]INE [employer]SEMBLER 350.1.13.10 ity of [place] REGIONAL 4.2.7.2.686 Ciaran as MATERNAL [id number] [facility] ical & CHILD [address] [place] [address] 2019-11-14 2019-11-14 Outpatient R AKINSIPE, [facility] [id number] Univers 09:15:00 09:15:00 GILDA itmaritza o f [facility] 2019-11-13 2019-11-13 Office Akinpe, [facility] [id number] Univers 15:15:42 16:23:04 Visit [facility] [employer]INE [employer]SEM[employer]ER 350.1.13.10 ity of [facility] [id number] Ciaran as MATERNAL [phone] [facility] [address] [place] [address] 2019-11-13 2019-11-13 Outpatient R AKINSIPE, [facility] [id number] Univers 15:30:00 15:30:00 GILDA barkley o f [facility] 2019-11-03 2019-11-03 Patient Doctor [facility] 1.2.840.114 [id number] Univers 00:00:00 00:00:00 Secure Msg Unassigned, AIR[employer]INE [employer]SEMBLER 350.1.13.10 ity of [place] [facility] 4.2.7.2.686 Ciaran as MATERNAL [id number] [facility] & CHILD [address] [place] [address] 2019-10-31 2019-10-31 Outpatient R AKINSIPE, [facility] [id number] Univers 12:45:00 12:45:00 GILDA ity o f [facility] 2019-10-31 2019-10-31 [facility] [id number] Univers 08:03:38 09:42:26 Visit [facility] [employer]INE [employer]SEMBLER 350.1.13.10 ity of [facility] 4.2.7.2.686 Ciaran as MATERNAL [id number] [facility] & CHILD [address] [place] [address] 2019-10-31 2019-10-31 Outpatient R AKINSTEPHENPE, [facility] [id number] Univers 08:00:00 08:00:00 GILDA aguiar [facility] 2019-10-31 2019-10-31 Orders Doctor CATHERINE 1.2.840.114 [id number] Univers 00:00:00 00:00:00 Only Unassigned, WINTER 350.1.13.10 ity of [place] [facility] 4.2.7.2.686 Ciaran as [phone] [address] 2019-10-16 2019-10-16 Outpatient R AKINSTEPHENPE, [facility] [id number] Univers 08:00:00 08:00:00 GILDAALEX aguiar [facility] 2019-10-10 2019-10-10 Outpatient R AKINSIPE, [facility] [id number] Univers 11:00:00 11:00:00 GILDA ity [facility] 2019-10-09 2019-10-09 Outpatient R AKINSTEPHENPE, [facility] [id number] Univers 14:15:00 14:15:00 GILDA barkley o [facility] 2019-09-11 2019-09-11 Outpatient R AKINSTEPHENPE, [facility] [id number] Univers 10:15:00 10:15:00 [facility] Results Test Description Test Time Test Comments Results Result Comments Source POCT URINALYSIS W SPECIFIC GRAVITY 2022-12-05 14:46:00 Test Item Value Reference Range Interpretation Comme nts POCT U SP GRAV (test code = 3255) . 1.005-1.025 POCT PH U (test code = 3254) . 5-8 POCT U LEUK EST (test code = 3263) . Negative - Negative POCT U NIT (test code = 3262) . Negative - Negative POCT U PROT (test code = 3259) trace Negative - Negative POCT U GLU (test code = 3256) neg Negative - Negative POCT U KETONE (test code = 3258) . Negative - Negative POCT U UROBILI (test code = 3260) . 0.2-1 POCT U BILI (test code = 3261) . Negative - Negative POCT U BLD (test code = 3257) . Negative - Negative POCT U COLOR (test code = 3266) . POCT U APPEAR (test code = 3267) . [facility] [id number] 15:32:00 Test Item Value Reference Range Interpretation Comments POCT PREG (test code = 1605) Positive On board controls acceptable with C Yes Line (test code = 3574) POCT PREG LOT # (test code = 3575) POCT PREG TEST DATE (test code = 3576) [facility] URINALYSIS W/O SPECIFIC [id number] 15:31:00 Test Item Value Reference Range Interpretation Comments POCT PH U (test code = 3254) 7 mg/dl 5-8 POCT U LEUK EST (test code = neg Negative - Negative 3263) POCT U NIT (test code = 3262) neg Negative - Negative POCT U PROT (test code = 3259) neg Negative - Negative POCT U GLU (test code = 3256) neg Negative - Negative POCT U KETONE (test code = 3258) neg Negative - Negative POCT U BLD (test code = 3257) trace Negative - Negative [facility] [id number] 20:54:00 Test Item Value Reference Range Interpretation Comments POCT PREG (test code = 1605) Negative On board controls acceptable with C Yes Line (test code = 3574) POCT PREG LOT # (test code = 3575) POCT PREG TEST DATE (test code = 3576) [facility] [id number] 20:54:00 Test Item Value Reference Range Interpretation Comments POCT PREG (test code = 1605) Negative On board controls acceptable with C Yes Line (test code = 3574) POCT PREG LOT # (test code = 3575) POCT PREG TEST DATE (test code = 3576) [facility] [id number] 13:50:00 Test Item Value Reference Range Interpretation Comments POCT PREG (test code = 1605) Negative On board controls acceptable with C Yes Line (test code = 3574) POCT PREG LOT # (test code = 3575) POCT PREG TEST DATE (test code = 3576) [facility] [id number] 13:50:00 Test Item Value Reference Range Interpretation Comments POCT PREG (test code = 1605) Negative On board controls acceptable with C Yes Line (test code = 3574) POCT PREG LOT # (test code = 3575) POCT PREG TEST DATE (test code = 3576) [facility]
--- NOTE | 2022-12-18 21:55 | RAD REPORT ---
EXAM DESCRIPTION: US - Matter Malgorzata Gonzalez 1 - 12/18/2022 9:17 pm CLINICAL HISTORY: ABD PAIN COMPARISON: No comparisons TECHNIQUE: Sonographic grayscale and color flow images of a first-trimester were obtained through transabdominal approach. FINDINGS: A single live intrauterine is identified. heart rate: 169 BPM. Tarina-rump length measures 74.5 millimeters, corresponding to gestational age of 13 weeks, 3 days. Focal thickening of the central placenta. On some of the sagittal and transverse images, there is sug gestion of a crescentic more hypoechoic structure at the interface of the placenta and myometrium, wi th focal apparent thickening of the central placenta. This appearance is not replicated there is a di screte collection on the acquired cine images. No yolk sac is visualized. Maternal ovaries are not visualized. No free fluid. IMPRESSION: 1. Single live intrauterine . 2. Calculated gestational age: 13 weeks, 3 days. Estimated due date by ultrasound: 06/22/2023. 3. Questionable crescentic hypoechoic structure at the interface of the placenta and myometrium. The appearance is not replicated on the cine images. The finding favors a focal myometrial contraction, h owever possibility of an underlying placental abruption cannot be entirely excluded. Close obstetric follow-up, and repeat sonographic evaluation in 3-7 days is recommended. The findings were communicated to Josephine Adrian on 12/18/2022 at 21:49 hours.
[2022-12-18 22:05] LABS: Specific Gravity 1.007 (1.005-1.030); Urine Bilirubin NEGATIVE (Negative); Urine Blood Negative (Negative); Urine Clarity Clear (Clear); Urine Color Colorless (Yellow); Urine Glucose NEGATIVE (Negative); Urine Protein NEGATIVE (Negative); Urine Urobilinogen Normal (Normal); Urine pH 5.5 (5.0-7.0)
[2022-12-18 22:12] LABS: Absolute Lymphocytes (CBC) 2.2 K/uL (0.7-4.9); Hematocrit 33.5 % (36.0-45.0); Lymphocytes % 24.1 % (15.3-44.8); MCV 75.1 fL (80-100); MPV 8.4 fL (7.6-11.3); Platelets 224 thou/uL (152-406); RBC Red Blood Cell Count 4.47 M/uL (3.86-4.86)
[2022-12-18 22:13] LABS: Specific Gravity 1.007 (1.005-1.030)
[2022-12-18 22:26] LABS: Potassium 3.5 mEq/L (3.5-5.1)
--- NOTE | 2022-12-18 23:57 | ER ---
Nurse's Notes [facility] Name: Herminia Montejo Age: 27 yrs Sex: Female : 1995 Arrival Date: 12/18/2022 Time: 20:09 Bed 19 Private MD: Diagnosis: Threatened Presentation: 12/18 20:36 Chief complaint: Patient states: "I'm 13 weeks and have red spotting in my mb9 urine. There aren't any clots and I have Rh - blood and was told to come here if I started spotting. My OBGYN is Akinsipe". Coronavirus screen: At this time, the client does not indicate any symptoms associated with coronavirus-19. Ebola Screen: No symptoms or risks identified at this time. Initial Sepsis Screen: Does the patient meet any 2 criteria? No. Patient's initial sepsis screen is negative. Does the patient have a suspected source of infection? No. Patient's initial sepsis screen is negative. Risk Assessment: Do you want to hurt yourself or someone else? Patient reports no desire to harm self or others. Onset of symptoms was December 18, 2022. 20:36 Method Of Arrival: Ambulatory 9 20:36 Acuity: PERRY 3 mb9 Triage Assessment: 20:39 General: Appears uncomfortable, Behavior is calm, cooperative. Pain: Denies pain. mb9 Neuro: Choudhury Agitation-Sedation Scale (RASS): 0 - Alert and Calm Level of Consciousness is awake, alert, obeys commands, Oriented to person, place, time, situation, Appropriate for age. Cardiovascular: Patient's skin is warm and dry. Respiratory: Airway is patent. GI: Patient currently denies pain. : Reports vaginal bleeding that is bright red, spotty. Derm: Skin is pink, warm \\T\\ dry. Musculoskeletal: Range of motion: intact in all extremities. 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 - Social history:: Smoking status: Patient denies any tobacco usage or history of. Screenin:38 [facility] ED Fall Risk Assessment (Adult) History of falling in the last 3 months, km8 including since admission No falls in past 3 months (0 pts) Confusion or Disorientation No (0 pts) Intoxicated or Sedated No (0 pts) Impaired Gait No (0 pts) Mobility Assist Device Used No (0 pt) Altered Elimination No (0 pt) Score/Fall Risk Level 0 - 2 = Low Risk Oriented to surroundings, Maintained a safe environment, Educated pt \\T\\ family on fall prevention, incl call for assistance when getting out of bed, Assessed \\T\\ reinforced patient's understanding of fall precautions. Abuse screen: Denies threats or abuse. Denies injuries from another. Nutritional screening: No deficits noted. Tuberculosis screening: No symptoms or risk factors identified. Assessment: 21:00 Reassessment: Pt called in lobby. No response. lg3 21:10 Reassessment: Pt called in lobby. No response. lg3 21:20 Reassessment: Attempted to contact pt by telephone. No answer. lg3 21:38 Obstetrical Assessment: General assessment: awake and alert, skin warm and dry, km8 respirations even and unlabored, Rupture of membranes noted. General: Appears in no apparent distress. comfortable. Pain: Denies pain. Neuro: No deficits noted. Choudhury Agitation-Sedation Scale (RASS): 0 - Alert and Calm Level of Consciousness is awake, alert, obeys commands, Oriented to person, place, time, situation, Appropriate for age. Cardiovascular: No deficits noted. Denies chest pain, shortness of breath, Capillary refill < 3 seconds Patient's skin is warm and dry. Respiratory: No deficits noted. Airway is patent Respiratory effort is even, unlabored, Respiratory pattern is regular, symmetrical. GI: No deficits noted. No signs and/or symptoms were reported involving the gastrointestinal system. : Reports vaginal bleeding that is bright red, spotty, when wiping Denies burning with urination, cramping pain. EENT: No deficits noted. No signs and/or symptoms were reported regarding the EENT system. Derm: No deficits noted. No signs and/or symptoms reported regarding the dermatologic system. Skin is intact, is healthy with good turgor, Skin is dry, Skin is normal, Skin temperature is warm. Musculoskeletal: No deficits noted. No signs and/or symptoms reported regarding the musculoskeletal system. 12/19 00:46 Reassessment: Patient appears in no apparent distress at this time. No changes from lg3 previously documented assessment. Patient and/or family updated on plan of care and expected duration. Pain level reassessed. Patient is alert, oriented x 3, equal unlabored respirations, skin warm/dry/pink. Patient states feeling better. Vital Signs: 12/18 20:36 BP 122 / 66; Pulse 78; Resp 16; Temp 98.2; Pulse Ox 100% ; Weight 104.33 kg; Height 5 mb9 ft. 2 in. ; Pain 0/10; 21:38 BP 120 / 63; Pulse 73; Resp 16; Pulse Ox 100% ; Pain 0/10; km8 22:00 BP 108 / 50; Pulse 67; Resp 16; Pulse Ox 99% on R/A; km8 23:00 BP 130 / 68; Pulse 68; Resp 16; Pulse Ox 99% on R/A; Pain 0/10; km8 12/19 00:46 BP 121 / 72; Pulse 69; Resp 17 S; Pulse Ox 100% on R/A; lg3 12/18 20:36 Body Mass Index 42.07 (104.33 kg, 157.48 cm) mb9 12/18 20:36 Pain Scale: Adult mb9 21:38 Pain Scale: Adult km8 23:00 Pain Scale: Adult km8 Vitals: 00:48 Heart Tones 169. lg3 ED Course: 12/18 20:14 Patient arrived in ED. ag3 20:21 Josephine Adrian FNP-C is PHCP. kb 20:21 Srini Douglas MD is Attending Physician. kb 20:38 Triage completed. mb9 20:38 Arm band placed on. mb9 21:19 Matter Eval Tm 1 In Process Unspecified. EDMS 21:38 No apparent distress. Pt visited by significant other. km8 21:38 Patient has correct armband on for positive identification. Placed in gown. Bed in low km8 position. Call light in reach. Side rails up X 1. Client placed on continuous cardiac and pulse oximetry monitoring. NIBP monitoring applied. Patient is placed in psych hold. 21:38 Patient maintains SpO2 saturation greater than 95% on room air. km8 21:42 Abo/rh Typing Sent. lg3 21:42 Basic Metabolic Panel Sent. lg3 21:42 CBC with Diff Sent. lg3 21:42 Test, Urine Sent. lg3 21:42 Quantitative Hcg Sent. lg3 21:42 Urinalysis w/ reflexes Sent. lg3 21:43 Inserted saline lock: 20 gauge in right antecubital area, using aseptic technique. lg3 Blood collected. 12/19 00:47 No provider procedures requiring assistance completed. IV discontinued, intact, lg3 bleeding controlled, No redness/swelling at site. Pressure dressing applied. Administered Medications: 00:18 Drug: Rho D Immune Globulin IM 300 mcg IM once Route: IM; Site: left deltoid; 8 00:48 Follow up: Response: No adverse reaction lg3 Medication: 00:48 VIS not applicable for this client. lg3 Point of Care Testing: Urine : 00:48 hCG Reading: Positive; lg3 Outcome: 12/18 23:56 Discharge ordered by . bairon 12/19 00:47 Discharged to home ambulatory, lg3 Condition: stable Discharge instructions given to patient, Instructed on discharge instructions, follow up and referral plans. Demonstrated understanding of instructions, follow-up care, 00:49 Patient left the ED. lg3 Signatures: Dispatcher [employer] EDJosephine Quevedo, MANUFACTURING ELECTRICIAN-C MANUFACTURING ELECTRICIAN-Kamilla Reese 3 Casi Woods, RN RN lg3 Louann Sloan, RN RN mb9 Chantale Trevino, RN RN km8 Corrections: (The following items were deleted from the chart) 12/18 23:10 22:51 Cord Rh type drawn and sent. [facility] EDMS 23:10 22:51 Fetalscreen drawn and sent. [facility] EDMS 23: 22:51 Rh Typing drawn and sent. [facility] EDMS 23:10 22:51 Antibody Screen drawn and sent. [facility] EDMS 23:10 22:51 RHOGAM+BB.LAB.BRZ drawn and sent. [facility] EDNJ
--- NOTE | 2022-12-18 23:57 | EDPHYS ---
Physician Documentation [facility] Name: Herminia Montejo Age: 27 yrs Sex: Female : 1995 Arrival Date: 12/18/2022 Time: 20:09 Bed 19 Private MD: ED Physician Srini Douglas HPI: 12/18 23:55 This 27 yrs old Female presents to ER via Ambulatory with complaints of kb Vaginal Bleeding, + Preg <12wks. 23:55 The patient presents to the emergency department with vaginal bleeding, described as kb spotting. The estimated gestational age is 13 weeks. course: care: private OB physician. Previous pregnancies: the patient has never been . Associated signs and symptoms: Pertinent positives: vaginal bleeding, Pertinent negatives: abdominal pain. The patient has not experienced similar symptoms in the past. The patient has not recently seen a physician. Pt states she noticed a couple spots of blood when she wiped today. States she is RH negative so she was told to come to the ER if she ever had any bleeding. 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 - Social history:: Smoking status: Patient denies any tobacco usage or history of. ROS: 23:52 Constitutional: Negative for fever, chills, and weight loss, kb 23:52 : Positive for vaginal bleeding, 23:52 All other systems are negative, Exam: 23:52 Constitutional: This is a well developed, well nourished patient who is awake, alert, kb and in no acute distress. Head/Face: Normocephalic, atraumatic. ENT: Moist Mucous membranes Cardiovascular: Regular rate Respiratory: Respirations even and unlabored. No increased work of breathing. Talking in full sentences Abdomen/GI: Soft, non-tender. No distention Skin: Warm, dry with normal turgor. Normal color. MS/ Extremity: Pulses equal, no cyanosis. Neurovascular intact. Full, normal range of motion. Neuro: Awake and alert, GCS 15, oriented to person, place, time, and situation. Moves all extremities. Normal gait. Vital Signs: 20:36 BP 122 / 66; Pulse 78; Resp 16; Temp 98.2; Pulse Ox 100% ; Weight 104.33 kg; Height 5 mb9 ft. 2 in. ; Pain 0/10; 21:38 BP 120 / 63; Pulse 73; Resp 16; Pulse Ox 100% ; Pain 0/10; km8 22:00 BP 108 / 50; Pulse 67; Resp 16; Pulse Ox 99% on R/A; km8 23:00 BP 130 / 68; Pulse 68; Resp 16; Pulse Ox 99% on R/A; Pain 0/10; km8 10 00:46 BP 121 / 72; Pulse 69; Resp 17 S; Pulse Ox 100% on R/A; lg3 12/18 20:36 Body Mass Index 42.07 (104.33 kg, 157.48 cm) 9 12/18 20:36 Pain Scale: Adult mb9 21:38 Pain Scale: Adult km8 23:00 Pain Scale: Adult km8 MDM: 12/18 20:21 Patient medically screened. kb 23:52 Differential diagnosis: threatened Ab, complete Ab, retained Ab. Data reviewed: vital kb signs, nurses notes. Discussion of test interpretation with radiology: I had a discussion with radiology regarding a test interpretation. US discussed with Dr Solano. Counseling: I had a detailed discussion with the patient and/or guardian regarding the historical points, exam findings, and any diagnostic results supporting the discharge/admit diagnosis, lab results, radiology results, the need for outpatient follow up, an OB/Gyne specialist, to return to the emergency department if symptoms worsen or persist or if there are any questions or concerns that arise at home. ED course: Results of diagnostic tests gone over in detail with pt. Pt educated on possible abruption and need for close follow up with OB. Pt will call OB in the morning. Pt educated on return precautions. Pt has no active bleeding or abd pain. 12/18 20:21 Order name: Abo/rh Typing kb 12/18 20:21 Order name: Basic Metabolic Panel; Complete Time: 22:49 kb 12/18 20: Order name: CBC with Diff; Complete Time: 22:14 kb 12/18 20:21 Order name: Test, Urine; Complete Time: 22:13 kb 12/18 20:21 Order name: Quantitative Hcg; Complete Time: 22:49 kb 12/18 20:21 Order name: Urinalysis w/ reflexes; Complete Time: 22:08 kb 12/18 23:10 Order name: Antibody Screen EDFL 12/18 23:10 Order name: Rh Typing EDFL 12/18 23:10 Order name: Fetalscreen EDFL 12/18 23:10 Order name: Cord Rh type EDFL 12/18 23:10 Order name: Rhogam EDFL 12/18 21:19 Order name: Matter Eval Tm 1; Complete Time: 21:56 EDMS 12/18 20:21 Order name: IV Saline Lock; Complete Time: 21:42 kb 12/18 20:21 Order name: Labs collected and sent; Complete Time: 21:42 kb 12/18 20:21 Order name: NPO; Complete Time: 21:42 kb Administered Medications: 12/19 00:18 Drug: Rho D Immune Globulin IM 300 mcg IM once Route: IM; Site: left deltoid; km8 00:48 Follow up: Response: No adverse reaction lg3 Point of Care Testing: Urine : 00:48 hCG Reading: Positive; lg3 Disposition Summary: 12/18/22 23:56 Discharge Ordered Notes: Location: Home kb Condition: Stable kb Diagnosis - Threatened kb Followup: kb - With: Emergency Department - When: As needed - Reason: Worsening of condition Followup: kb - With: Private Physician - When: 2 - 3 days - Reason: Recheck today's complaints, Continuance of care, Re-evaluation by your physician Discharge Instructions: - Discharge Summary Sheet kb - Threatened Miscarriage, [id number] kb - Vaginal Bleeding During , First Trimester, [id number] kb Forms: - Medication Reconciliation Form kb - Thank You Letter kb - Antibiotic Education kb - Prescription Opioid Use kb - Patient Portal Instructions kb - Leadership Thank You Letter kb Signatures: Dispatcher [employer] EDMS Josephine Adrian, HORACE-C DIORAMIST-Louann Gerardo RN RN mb9 Chantale Trevino RN RN km8 Casi Woods RN lg3 Corrections: (The following items were deleted from the chart) 12/18 21:19 20:22 Transvaginal Ob+US.RAD.BRZ ordered. EDMS EDMS : 22:31 RHOGAM+BB.LAB.BRZ ordered. EDMS EDMS 22:32 Rh Typing ordered. EDMS EDMS : 22:32 Antibody Screen ordered. EDMS EDMS : 22:33 Fetalscreen ordered. EDMS EDMS : 22:33 Cord Rh type ordered. EDMS EDMS
[2022-12-19 02:56] VITALS: TEMP 98.2
[2022-12-19 03:02] VITALS: BP 121/72; O2SAT 100
== END 2022-12-19 00:49 | disposition home or self-care (01) ==
LOC: ER 20:09
DX: O20.0 Threatened abortion (principal); Z3A.13 13 weeks gestation of pregnancy
CPT/HCPCS: 36415; 76801; 80048; 81003; 81025; 84702; 85025; 86850; 86900; 86901; 96372; 99285